=== PATIENT | male | born 1930 | race African-American/Black ===

== ENCOUNTER 2019-11-16 11:33 | Inpatient (IN) | payer MEDICARE, OTHER ==
[~2019-11-16] VITALS: Ht 177.8 cm; Wt 51.7 kg
[2019-11-16 12:03] LABS: BASOPHILS % 0.4 % (0.0-2.0); EOSINOPHILS % 1.3 % (0.0-5.0); HEMATOCRIT. 34.4 % (42.0-52.0); HEMOGLOBIN. 10.9 g/dL (14.0-18.0); LYMPHOCYTES % 21.8 % (20.0-50.0); MEAN CORPUSCULAR HEMOGLOBIN 22.9 pg (28.0-32.0); MEAN CORPUSCULAR VOLUME 72.5 fL (80.0-94.0); MEAN PLATELET VOLUME 7.8 fl (7.4-10.4); MONOCYTES % 7.5 % (2.0-8.0); PLATELET 359 x1000/uL (130-400); RED BLOOD CELL COUNT 4.74 mill/uL (4.7-6.1); RED CELL DISTRIBUTION WIDTH 16.4 % (11.6-14.6)
[2019-11-16 12:10] LABS: CHLORIDE 108 mEq/L (98-107)
[2019-11-16 16:00] VITALS: BP 162/82
[2019-11-16] MEDS ORDERED: ONDANSETRON HCL 4MG/2ML INJ IV PRN (17:00)
[2019-11-16] MEDS ORDERED: ACETAMINOPHEN 325MG TABLET PO PRN (17:00)
[2019-11-16] MEDS ORDERED: CLONIDINE 0.1MG TABLET PO PRN (17:00)
[2019-11-16 17:30] VITALS: BP 162/82
[2019-11-16] MEDS: AMLODIPINE 10MG TABLET PO SCH (18:00)
[2019-11-16] MEDS: ENOXAPARIN 40MG/0.4ML SYR SUBCUT SCH (18:01)
[2019-11-16 20:00] VITALS: BP 137/75
[2019-11-16] MEDS ORDERED: ATOR10TA69 MT (20:15)
[2019-11-16] MEDS ORDERED: LISI-604 MT (20:16)
[2019-11-16] MEDS ORDERED: LATA2.5D2 EACHEYE (20:17)
[2019-11-16 21:33] LABS: CLARITY URINE CLOUDY (CLEAR); COLOR URINE YELLOW (YELLOW); KETONES URINE NEGATIVE (NEGATIVE); LEUKOCYTE ESTERASE URINE 3+ (NEGATIVE); NITRITE URINE NEGATIVE (NEGATIVE); OCCULT BLOOD URINE TRACE (NEGATIVE); PROTEIN URINE NEGATIVE (NEGATIVE)
[2019-11-17] VITALS: BP 108/53
[2019-11-17 04:00] VITALS: BP_SYST 120; BP_SYST 125; BP_SYST 154; BP_DIAS 59; BP_DIAS 64; BP_DIAS 87
[2019-11-17 08:00] VITALS: BP 130/67
[2019-11-17] MEDS: ASPIRIN 81MG TABLET PO SCH (08:32)
[2019-11-17] MEDS: AMLODIPINE 10MG TABLET PO SCH (08:33)
[2019-11-17] MEDS ORDERED: CEFTRIAXONE 1 G PREMIX 50 ML IV SCH (08:45)
[2019-11-17] MEDS: CEFTRIAXONE 1,000 MG in DEXTROSE 5% WATER 50 ML IV SCH ×2 (09:56→10:52)
[2019-11-17 11:16] LABS: CHLORIDE 106 mEq/L (98-107)
[2019-11-17 12:00] VITALS: BP 118/64
[2019-11-17 15:02] LABS: BASOPHILS % 0.8 % (0.0-2.0); EOSINOPHILS % 1.8 % (0.0-5.0); HEMATOCRIT. 34.1 % (42.0-52.0); HEMOGLOBIN. 10.6 g/dL (14.0-18.0); LYMPHOCYTES % 25.2 % (20.0-50.0); MEAN CORPUSCULAR HEMOGLOBIN 22.8 pg (28.0-32.0); MEAN CORPUSCULAR VOLUME 73.2 fL (80.0-94.0); MEAN PLATELET VOLUME 8.3 fl (7.4-10.4); MONOCYTES % 8.9 % (2.0-8.0); NEUTROPHILS % 63.3 % (40.0-76.0); PLATELET 347 x1000/uL (130-400); RED BLOOD CELL COUNT 4.66 mill/uL (4.7-6.1); RED CELL DISTRIBUTION WIDTH 16.3 % (11.6-14.6)
[2019-11-17 16:00] VITALS: BP 118/69
[2019-11-17] MEDS: ENOXAPARIN 40MG/0.4ML SYR SUBCUT SCH (17:45)
[2019-11-17 20:00] VITALS: BP 125/59
[2019-11-18] VITALS: BP 128/64
[2019-11-18 04:00] VITALS: BP 125/73
[2019-11-18] MEDS: ASPIRIN 81MG TABLET PO SCH (08:11)
[2019-11-18] MEDS: AMLODIPINE 10MG TABLET PO SCH (08:11)
[2019-11-18] MEDS: CEFTRIAXONE 1,000 MG in DEXTROSE 5% WATER 50 ML IV SCH (09:01)
[2019-11-18 14:59] VITALS: BP 112/67
== END 2019-11-18 16:08 | disposition home or self-care (01) | DRG 73 ==
LOC: ER 11:33 → 8WST 13:57 → EDBEDREQ 13:59 → EDBEDREQTM 13:59 → ENRESERV 15:56
PROVIDERS: ADMIT Internal Medicine; ATTEND Internal Medicine
DX: G90.8 Other disorders of autonomic nervous system (principal); E43 Unspecified severe protein-calorie malnutrition; N39.0 Urinary tract infection, site not specified; J98.11 Atelectasis; Z68.1 Body mass index [BMI] 19.9 or less, adult; I10 Essential (primary) hypertension; I48.91 Unspecified atrial fibrillation; E87.8 Other disorders of electrolyte and fluid balance, not elsewhere classified; D64.9 Anemia, unspecified; I35.0 Nonrheumatic aortic (valve) stenosis; I49.3 Ventricular premature depolarization; Z86.73 Personal history of transient ischemic attack (TIA), and cerebral infarction without residual deficits; Z91.81 History of falling
CPT/HCPCS: 36415; 71045; 80048; 80053; 80061; 81003; 83735; 83880; 84443; 84484; 85025; 87077; 87186; 93005; 93306; 97162; 99285; J0696; J1650; J7060